=== PATIENT | female | born 1950 | race Caucasian/White ===

== ENCOUNTER 2024-11-05 12:54 | Outpatient (CLI) | payer MEDICARE, OTHER | END 2024-11-05 12:55 | disposition home or self-care (01) | LOC: CSHULT 12:54 | PROVIDERS: ATTEND Family Medicine | DX: Z12.2 Encounter for screening for malignant neoplasm of respiratory organs (principal); F17.210 Nicotine dependence, cigarettes, uncomplicated; R09.89 Other specified symptoms and signs involving the circulatory and respiratory systems; I65.23 Occlusion and stenosis of bilateral carotid arteries | CPT/HCPCS: 71271; 93880 ==

== ENCOUNTER 2024-12-07 07:08 | Outpatient (CLI) | payer MEDICARE, OTHER ==
[2024-12-07] MEDS ORDERED: Iopamidol 370 76% 100 ML VIAL ONE (11:03)
== END 2024-12-07 07:09 | disposition home or self-care (01) ==
LOC: CSHCT 07:08
PROVIDERS: ATTEND Thoracic Surgery (Cardiothoracic Vascular Surgery)
DX: I65.23 Occlusion and stenosis of bilateral carotid arteries (principal)
CPT/HCPCS: 36415; 70498; 82565